=== PATIENT | male | born 1945 | race Caucasian/White ===

== ENCOUNTER → 2017-05-14 | Outpatient (CLI) | payer MEDICARE, BC ==
[~2017-05-14] MED LIST: AMBI10TA PO; ASPI-110 PO; ASPI81 PO; FISH1000 PO; LOSA50; LOSA50TA PO; LYRI150C PO; OMEG100046 PO; OXYC1TAB63 PO; PROT40TA PO; RABE1TAB PO; RANI150 PO; TRAM50 PO; TRAM50TA PO; TYLE325T PO; XARE10TA PO; ZANT300T PO; ZETI10TA5 PO; ZOLP10TA3 PO
[2017-05-14 09:28] LABS: BLOOD, URINE NEG (NEG); COMMENT (UR) CULT NOT INDICATED; CULTURE IF INDICATED CULT NOT INDICATED; GLUCOSE,URINE NEG (NEG); HYALINE CAST, URINE 3 /lpf (RARE); KETONE, URINE NEG (NEG); MUCUS URINE FEW /lpf (OCC); NITRITE,URINE NEG (NEG); PH, URINE 5.5 (5.0-8.5); URINE COLOR YELLOW (YELLW/STRAW)
[2017-05-14 09:30] LABS: AUTOMATED NEUTROPHIL # 3.2 TH/MM3 (1.8-7.7); EOSINOPHIL # 0.1 TH/MM3 (0-0.4); EOSINOPHIL % 1.2 % (0.0-4.0); HEMATOCRIT 40.3 % (39.0-51.0); HEMO FLAGS DIFF FINAL; LYMPH % 24.4 % (9.0-44.0); LYMPHOCYTE # 1.2 TH/MM3 (1.0-4.8); MEAN CELL VOLUME 95.9 FL (80.0-100.0); MEAN CORPUSCULAR HEMOGLOBIN 31.8 PG (27.0-34.0); MEAN CORPUSCULAR HGB CONC 33.2 % (32.0-36.0); MONO % 7.8 % (0.0-8.0); NEUT % 65.6 % (16.0-70.0); PLATELET COUNT 329 TH/MM3 (150-450); RED BLOOD COUNT 4.21 MIL/MM3 (4.50-5.90); RED CELL DISTRIBUTION WIDTH 15.8 % (11.6-17.2); WHITE BLOOD COUNT 4.8 TH/MM3 (4.0-11.0)
[2017-05-14 09:37] LABS: INTERNATIONAL NORMALIZED RATIO 0.9 RATIO; PROTHROMBIN TIME - PATIENT 10.2 SEC (9.8-11.6)
--- NOTE | 2017-05-14 09:45 | RADRPT ---
EXAM DATE/TIME: 05/14/2017 09:27 [facility] COMPARISON: No previous studies available for comparison. INDICATIONS : Evaluate for pneumonia, pneumothorax, and communicable disease. Pre op for hip surgery. MEDICAL HISTORY : Hypertension. Gastroesophageal reflux disease. Cardiac arrhythmia. SURGICAL HISTORY : Lumbar fusion. ENCOUNTER: Initial ACUITY: 1 day PAIN SCORE: 0/10 LOCATION: Bilateral chest FINDINGS: PA and lateral views of the chest demonstrate the lungs to be symmetrically aerated without evidence of mass, infiltrate or effusion. The cardiomediastinal contours are unremarkable. Osseous structure s are intact. CONCLUSION: No acute cardiopulmonary disease. Hermilo Ma MD on May 14, 2017 at 9:43 Board Certified Radiologist. This report was verified electronically.
[2017-05-14 10:12] LABS: BICARBONATE 29.8 MEQ/L (21.0-32.0); POTASSIUM 4.1 MEQ/L (3.5-5.1)
--- NOTE | 2017-05-14 21:06 | EKG ---
Date Performed: 05/14/2017 Time Performed: 09:14:58 PTAGE: 71 years EKG: Sinus rhythm INCOMPLETE RIGHT BUNDLE BRANCH BLOCK VOLTAGE CRITERIA FOR LVH POSSIBLE SEPTAL MYOCARDIAL INFARCTION, OF INDETERMINATE AGE ABNORMAL ECG NO PREVIOUS TRACING DOCTOR: Christelle Gerber Interpretating Date/Time 05/14/2017 21:05:02
== END ==
LOC: CPRE 08:24
PROVIDERS: ATTEND Orthopaedic Surgery Sports Medicine
DX: Z01.810 Encounter for preprocedural cardiovascular examination (principal); Z01.811 Encounter for preprocedural respiratory examination; Z01.812 Encounter for preprocedural laboratory examination; Z01.818 Encounter for other preprocedural examination; Z96.60 Presence of unspecified orthopedic joint implant; Z79.01 Long term (current) use of anticoagulants; Z13.9 Encounter for screening, unspecified; M79.609 Pain in unspecified limb
CPT/HCPCS: 36415; 71020; 80048; 81001; 85025; 85610; 85730; 86850; 86900; 86901; 93005

== ENCOUNTER 2017-05-15 05:38 | Inpatient (IN) | payer MEDICARE, BC ==
--- NOTE | 2017-05-14 22:32 | MH ---
cc: WON HEATH M.D. DATE OF ADMISSION 05/15/2017 DATE OF 1945 ADMISSION DIAGNOSIS Left hip avascular necrosis. PLANNED PROCEDURE Left total hip arthroplasty - anterior approach. 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 He has tried anti-inflammatory medication and corticosteroid injection into his left hip. His pain is progressively worsened and now he has had an MRI scan which confirms a intra-articular subchondral fracture with flattening of the femoral head consistent with avascular necrosis of the hip as well as underlying significant osteoarthritis . No other pathologic condition is seen MRI scan. This is a progressive debilitating condition with avascular necrosis with intra-articular fracture and therefore, he has indicated for left total hip arthroplasty. PAST MEDICAL HISTORY Significant for: 1. 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 2. He has gastroesophageal reflux disease. 3. Hypertension. MEDICATIONS His medications include: 1. Aspirin. 2. Hydrochlorothiazide. 3. Losartan. 4. Lyrica. 5. Previously on Prednisone. 6. Ranitidine. 7. Zetia. 8. Aciphex. ALLERGIES HE REPORTS AN ALLERGY TO STATINS. HMG - CoA reductase inhibitors. PAST SURGICAL HISTORY Significant for: 1. A prior foot / ankle surgery. 2. Prior hernia surgery. 3. Prior lower lumbar spine surgery. 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 He is . Uses occasional alcohol. Does not use tobacco. PHYSICAL EXAMINATION GENERAL: The patient is alert, oriented, appropriate. HEENT: His head is atraumatic, normocephalic. Extraocular muscles intact. His mucous membranes are pink and moist. NECK: His neck is supple without masses. LUNGS: Clear to auscultation bilaterally. HEART: Regular rate and rhythm without murmur. ABDOMEN: Soft, benign. EXTREMITIES: Left hip reveals significant pain with range of motion. No erythema. No masses. On the right hip he has internal rotation to 40 degrees and external rotation to 40 degrees. On the left hip he has internal rotation to 20 degrees and external rotation to 20 degrees. Significant pain with block extension of the hip and pain on end range of motion. His knee is nontender. His calves are soft. His distal pulses are 2+. His distal motor, sensory, neurologic examinations intact. IMAGING MRI scan and has been reviewed which shows subchondral edema and intra-articular fracture and flattening of the femoral head consistent with avascular necrosis with collapse and also shows significant osteoarthritis of the hip joint. ASSESSMENT Left hip avascular necrosis with collapse and underlying osteoarthritis. MEDICAL DECISION MAKING The patient's condition was discussed and the options of treatment were discussed. Continuation of nonoperative treatment was discussed but based on the aggressive debilitating nature of his condition the recommendation is to proceed with left total hip arthroplasty. The surgical technique has been described. Included in the discussion are the risks and benefits of surgical intervention. He accepts these risks and wishes to press on with surgery. A detailed informed consent has a been obtained. MD ZEUS Huggins/FRANCISCO /9:24 PM /10:11 PM
[~2017-05-15] VITALS: Ht 172.7 cm; Wt 70.4 kg
[~2017-05-15 05:38] MED LIST changes: -ASPI81 PO; -FISH1000 PO; -LOSA50; -OXYC1TAB63 PO; -RANI150 PO; -TRAM50 PO; -TYLE325T PO; -XARE10TA PO; -ZETI10TA5 PO; -ZOLP10TA3 PO
[2017-05-15] MEDS ORDERED: INSULIN HUMAN REGULAR 1,000 UNITS/10 ML VIAL SQ PRN (06:15)
[2017-05-15] MEDS ORDERED: VANCOMYCIN 1000 MG/NS 250 ML (for <70 kg) IV SCH ×2 (06:15)
[2017-05-15] MEDS ORDERED: METOPROLOL TARTRATE 25 MG TAB PO PRN (06:15)
[2017-05-15] MEDS ORDERED: LACTATED RINGER'S 1000 ML IV PRN (06:15)
[2017-05-15] MEDS ORDERED: SODIUM CHLORID 0.9% 500 ML IV PRN (06:15)
[2017-05-15] MEDS ORDERED: ceFAZolin 2 GM PREMIX 50 ML IV SCH (06:15)
[2017-05-15] MEDS ORDERED: CHLORHEXIDINE GLUCONATE 4% SOLN 120 ML BTL TOPICAL SCH (06:15)
[2017-05-15] MEDS ORDERED: CHLORHEXIDINE GLUCONATE 2 % 1 PACK (2 CLOTHS) TOPICAL PRN (06:15)
[2017-05-15] MEDS ORDERED: POVIDONE IODINE 5% (ANTISEPSIS KIT) 4 APPLICATIONS EACH NARE PRN (06:15)
[2017-05-15] MEDS ORDERED: ACETAMINOPHEN 1000 MG/100 ML 100 ML IV ONE (06:30)
[2017-05-15] MEDS ORDERED: ZETI10TA5 PO (06:59)
[2017-05-15] MEDS ORDERED: TYLE325T PO (06:59)
[2017-05-15] MEDS ORDERED: TOBRAMYCIN/DEXAMETHASONE OPTH OINT 3.5 GM TUBE ONE (08:17)
[2017-05-15] MEDS ORDERED: ARTIFICIAL TEARS OPTH OINT 3.5 APPLIC/3.5 GM TUBO ONE (08:20)
[2017-05-15] MEDS ORDERED: TRANEXAMIC ACID INJ 1,056 MG in SODIUM CHLORIDE 0.9% INJ 100 ML IV SCH (08:30)
[2017-05-15] MEDS: EXPAREL PERI-ARTICULAR INJECTION (TOTAL VOL. 60 ML) P-ARTICULR SCH ×4 (09:23→09:25)
[2017-05-15] MEDS ORDERED: ZOLPIDEM TARTRATE 10 MG TAB PO PRN (10:30)
--- NOTE | 2017-05-15 10:30 | PD.OP ---
Operative Report Preoperative Diagnosis: (1) Avascular necrosis of bone of left hip Postoperative Diagnosis: (1) Avascular necrosis of bone of left hip Procedure: Left Total Hip Arthroplasty - Anterior Approach Anesthesia: General Surgeon: Easton Santamaria MD Medical Affairs Specialist(s): Nadir BENZ Operation and Findings: see dictation Easton Santamaria MD May 15, 2017 10:30
[2017-05-15] MEDS ORDERED: Post-op Orders (for Pharmacy) MISC XX ONE (10:32)
[2017-05-15] MEDS ORDERED: MAGNESIUM HYDROXIDE SUSP 30 ML CUP PO PRN (10:45)
[2017-05-15] MEDS ORDERED: LACTULOSE SYRUP 20 GM/30 ML CUP PO PRN (10:45)
[2017-05-15] MEDS ORDERED: BISACODYL 10 MG SUPP RECTAL PRN (10:45)
[2017-05-15] MEDS ORDERED: MISCELLANEOUS NURSING INFORMATION XX PRN (10:45)
[2017-05-15] MEDS ORDERED: oxyCODONE/ACETAMINOPHEN 5 MG/325 MG TAB PO PRN ×2 (10:45)
[2017-05-15] MEDS ORDERED: SENNOSIDES 8.6 MG TAB PO PRN (10:45)
[2017-05-15] MEDS ORDERED: HYDROmorphone HCL PF 2 MG/ML VIAL ONE (10:46)
[2017-05-15] MEDS: LACTATED RINGER'S 1000 ML INJ 1,000 ML IV SCH ×2 (11:00→23:01)
[2017-05-15] MEDS ORDERED: DO NOT ADM ANY ANTICOAGULANT DRUGS PRN (11:30)
[2017-05-15] MEDS: KETOROLAC TROMETHAMINE 30 MG/ML (IVP) VIAL IVP SCH ×3 (11:33→23:41)
[2017-05-15] MEDS ORDERED: cloNIDine HCL 0.1 MG TAB PO PRN (11:45)
[2017-05-15] MEDS ORDERED: ENALAPRILAT 1.25 MG/ML VIAL IV PUSH PRN (11:45)
[2017-05-15 12:15] VITALS: BP 161/85; PULSE 69; RESP 18; TEMP 98.5; O2SAT 94
[2017-05-15 12:17] VITALS: BP 161/85; PULSE 69; RESP 18; TEMP 98.5; O2SAT 94
[2017-05-15] MEDS ORDERED: TRANEXAMIC ACID IV SCH (12:30)
[2017-05-15] MEDS ORDERED: SODIUM CHLORIDE 0.9% IV SCH (12:30)
--- NOTE | 2017-05-15 12:41 | RADRPT ---
EXAM DATE/TIME: 05/15/2017 09:12 [facility] COMPARISON: No previous studies available for comparison. INDICATIONS : Left anterior hip replacement. MEDICAL HISTORY : Hypertension. Gastroesophageal reflux disease. SURGICAL HISTORY : None. ENCOUNTER: Initial ACUITY: 1 day PAIN SCORE: Non-responsive. LOCATION: Left anterior hip. FINDINGS: Left hip prosthesis in place. There is good position and alignment on this postoperative study. Posts urgical changes are demonstrated. CONCLUSION: Good position and alignment on this postoperative study. Garrett Cheek MD on May 15, 2017 at 12:39 Board Certified Radiologist. This report was verified electronically.
[2017-05-15 13:58] VITALS: O2SAT 97
[2017-05-15 15:25] VITALS: BP 144/49; PULSE 101; RESP 18; TEMP 96.1; O2SAT 92
--- NOTE | 2017-05-15 16:58 | PD.CONS ---
[facility] By Dr. 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 He underwent arthroplasty today by Dr. Silverio who requested medical management. Anesthesia records reviewed he was hemodynamically stable initially with elevated blood pressure. Denies headache, dizziness, chest pain and shortness of breath. He has history of hypertension and takes losartan. Received 1000 ml of Crystalloid and EBL of 100 ML. He also has right optical neuritis with worsening visual acuity after stopping oral steroids 2 weeks ago and received intraocular steroid shot yesterday. During the process he sustained corneal abrasion and currently using tobradex. 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 At this time, he has no complaints. He wants to avoid narcotics as possible. He was to continue IV Toradol and Tylenol. All other systems reviewed negative Review of Systems Except as stated in HPI: all other systems reviewed are Neg Past Family Social History Allergies: Coded Allergies: amlodipine (Unverified Allergy, Mild, 05/14/17) atorvastatin (Unverified Allergy, Mild, 05/14/17) pravastatin (Unverified Allergy, Mild, 05/14/17) simvastatin (Unverified Allergy, Mild, 05/14/17) Uncoded Allergies: PRAULENT (Allergy, Severe, 05/15/17) Past Medical History As previously mentioned Past Surgical History Left inguinal hernia repair 2, left knee arthroscopy, left rotator surgery, left ankle surgery and L4-L5 fusion Reported Medications Zetia (Ezetimibe) 10 Mg Tab 10 Mg PO DAILY Ambien (Zolpidem Tartrate) 10 Mg Tab 10 Mg PO HS PRN Fish Oil 1,000 mg Softgel (Adams-3/Dha/Epa/Fish Oil) 1,000 Mg (120 Mg-180 Mg) Capsule 1 Cap PO DAILY Zantac (Ranitidine HCl) 300 Mg Tab 300 Mg PO BID Lyrica (Pregabalin) 150 Mg Cap 150 Mg PO BID Rabeprazole (Rabeprazole Sodium) 20 Mg Tab 20 Mg PO DAILY Losartan (Losartan Potassium) 50 Mg Tab 50 Mg PO DAILY Aspirin 81 (Aspirin) 81 Mg Tabdr 81 Mg PO DAILY Family History COPD Social History Occasional wine use. Does not smoke Physical Exam Vital Signs Vital Signs Date Time Temp Pulse Resp B/P (MAP) Pulse Ox O2 Delivery O2 Flow Rate FiO2 05/15/17 15:25 96.1 101 18 144/49 (80) 92 05/15/17 13:58 97 Nasal Cannula 1.00 05/15/17 12:17 98.5 69 18 161/85 (110) 94 05/15/17 12:15 98.5 69 18 161/85 (110) 94 05/15/17 11:45 97.8 69 18 139/77 (97) 95 Nasal Cannula 2 05/15/17 11:30 67 17 142/77 (98) 95 Nasal Cannula 2 05/15/17 11:15 63 15 143/75 (97) 95 Nasal Cannula 2 05/15/17 11:00 70 15 130/69 (89) 95 Nasal Cannula 2 05/15/17 10:45 85 15 143/77 (99) 95 Room Air 05/15/17 10:32 97.8 94 15 144/78 (100) 97 Simple Mask 6 05/15/17 07:07 97.6 62 20 181/97 (125) 100 Physical Exam GENERAL: This is a well-nourished, well-developed patient, in no apparent distress. SKIN: No rashes, ecchymoses or lesions. Cool and dry. HEAD: Atraumatic. Normocephalic. No temporal or scalp tenderness. EYES: Pupils equal round and reactive. Extraocular motions intact. No scleral icterus. No injection or drainage. ENT: Nose without bleeding, purulent drainage or septal hematoma. Throat without erythema, tonsillar hypertrophy or exudate. Uvula midline. Airway patent. NECK: Trachea midline. No JVD or lymphadenopathy. Supple, nontender, no meningeal signs. CARDIOVASCULAR: Regular rate and rhythm without murmurs, gallops, or rubs. RESPIRATORY: Clear to auscultation. Breath sounds equal bilaterally. No wheezes , rales, or rhonchi. GASTROINTESTINAL: Abdomen soft, non-tender, nondistended. No guarding. MUSCULOSKELETAL: Extremities without clubbing, cyanosis, or edema. NEUROLOGICAL: Awake and alert. Cranial nerves II through XII intact. Motor and sensory grossly within normal limits. Five out of 5 muscle strength in all muscle groups. Normal speech. Laboratory Preop records reviewed for, 4.8 hemoglobin 13.4 platelet count of 24 INR 0.9 BUN of 2012 creatinine 1.08 urinalysis unremarkable chest x-ray unremarkable EKG sinus rhythm with incomplete RBBB Imaging Last Impressions Hip X-Ray 05/15/17 0000 Signed Impressions: Service Date/Time: April 09:12 - CONCLUSION: Good position and alignment on this postoperative study. 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 He underwent arthroplasty by Dr. Silverio who requested medical management. Left hip a vascular necrosis and osteomyelitis status post arthroplasty. Stable continue postoperative care physical therapy, wound care, pain management with Tylenol, IV Toradol and as needed Percocet. DVT prophylaxis with Xarelto. Monitor for postoperative anemia check H&H in the morning Hypertension. Initially control secondary to anxiety. Continue losartan with as needed Vasotec and clonidine. Right optical neuritis with worsening visual acuity after stopping oral steroids 2 weeks ago status post intraocular steroid shot. During the process he sustained corneal abrasion and currently using tobradex. We'll monitor Autoimmune neuropathy from statin with intermittent numbness of the bilateral lower extremities on Lyrica. Stable Hyperlipidemia on Zetia. Stable GERD on AcipHex, ranitidine and as needed Gaviscon. Discussed Condition With Patient and Armin Yrok MD May 15, 2017 16:58
[2017-05-15] MEDS ORDERED: AL HYDR/MG TRIS/ALGIN AC/SOD BIC REG STRENGTH CHEW TAB CHEW PRN (17:00)
[2017-05-15] MEDS: FAMOTIDINE 20 MG TAB PO SCH (20:49)
[2017-05-15] MEDS: DOCUSATE SODIUM 50 MG/SENNA 8.6 MG TAB PO SCH (20:49)
[2017-05-15 20:50] VITALS: BP 127/81; PULSE 92; RESP 17; TEMP 96.3; O2SAT 96
[2017-05-15] MEDS: ACETAMINOPHEN 500 MG CPLT PO SCH (20:50)
[2017-05-15] MEDS: PREGABALIN 75 MG CAP PO SCH (20:50)
--- NOTE | 2017-05-15 20:51 | MP ---
cc: WON HEATH M.D. DATE OF SURGERY: 05/15/2017. PREOPERATIVE DIAGNOSIS: Left hip avascular necrosis and osteoarthritis. POSTOPERATIVE DIAGNOSIS: Left hip avascular necrosis and severe left hip osteoarthritis. OPERATIVE PROCEDURE PERFORMED: Left total hip arthroplasty -- anterior approach using Tyrese & Tyrese DePuy prosthesis, size 12 femoral stem standard offset with a +5 mm, 36 diameter ceramic femoral head and a 52 mm acetabular shell with a neutral ALTRX polyethylene liner. SURGEON: Won Heath M.D. BUS ANALYST SURGEON: TUYET Hargrove. ANESTHESIA: General. ESTIMATED BLOOD LOSS: 200 cc. DRAINS: None. SPECIMEN: Femoral head inspected and found to have exposed bone consistent with severe osteoarthritis as well as two flattened areas consistent with avascular necrosis with subchondral fracture and collapse. COMPLICATIONS: None known. 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 He has gone from a high level of activity to having no significant activity level and chronically in pain. MRI scan reveals a subchondral fracture with collapse consistent with avascular necrosis with collapse. He is now indicated for total hip arthroplasty. A detailed discussion and the options of treatment were thoroughly discussed. A detailed informed consent was obtained. NOTE: It should be noted that the presser first, Nadir Franco is an advanced registered nurse practitioner and his skill set was medically necessary to assist with the performance of the operation. DESCRIPTION OF THE PROCEDURE IN DETAIL: The patient was brought the operating room and placed on the well-padded ProFx table. The left hip was prepped and draped in the usual sterile fashion. IV antibiotics were given. Time-out was completed. Anterior approach to the hip. Meticulous hemostasis was obtained with the use of electrocautery and the Aquamantys Cauterizing Device. We proceeded with direct anterior approach and identified the crossing artery and coagulated this with the Aquamantys and then split it with the cautery and then exposed the anterior capsule placing our retractors on either side and then made a T capsulotomy in the capsule and tagged it with #2 FiberWire and then used fluoroscopy to help guide us to where our cut was to be and then proceeded with our femoral neck cut and then inspected the femoral head with severe arthritis and the collapse of the femoral head, subchondral fracture regions noted and then proceeded to sequentially ream the hip. We did resect the labrum. We medialized and we reamed up to 51 and then proceeded to impact a 52 mm cup with excellent fixation. A hole eliminator was placed. Polyethylene was placed for a 36 mm head and then proceeded with placing our deep retractors about the proximal femur and externally rotating and crossing and then using the box chisel with canal finger and sequential broaching up to size 12 where we used a calcar reamer and did a trial reduction and found excellent stability. Radiographically a few millimeters short on leg length, otherwise size 12 was fitting nicely. Then we proceeded with placement of our final size 12 and then sized the +5 and this was the right length and offset with excellent stability. This was the final head. The ceramic head was impacted into place. We then proceeded with anatomic repair of the capsule and then proceeded with closure with absorbable suture. Long-acting Marcaine was injected. The patient was closed in layers with absorbable sutures with subcuticular on the skin. Steri-Strips applied. Sterile dressing applied. The patient was awoken and returned to the recovery room in stable condition. MD ZEUS Huggins/DAVI /10:09 AM /8:29 PM
[2017-05-15] MEDS ORDERED: FAMOTIDINE 20 MG TAB PO SCH (21:00)
[2017-05-16] VITALS: BP 138/75; PULSE 74; RESP 17; TEMP 96.5; O2SAT 93
[2017-05-16 03:15] VITALS: BP 129/77; PULSE 75; RESP 16; TEMP 96.7; O2SAT 97
[2017-05-16] MEDS: KETOROLAC TROMETHAMINE 30 MG/ML (IVP) VIAL IVP SCH ×2 (05:03→10:40)
--- NOTE | 2017-05-16 07:01 | PD.ORT.PN ---
Subjective Subjective Remarks Patient comfortable Objective Vitals Vital Signs Date Time Temp Pulse Resp B/P (MAP) Pulse Ox O2 Delivery O2 Flow Rate FiO2 05/16/17 03:15 96.7 75 16 129/77 (94) 97 05/16/17 00:00 96.5 74 17 138/75 (96) 93 05/15/17 21:25 21 05/15/17 20:50 96.3 92 17 127/81 (96) 96 05/15/17 15:25 96.1 101 18 144/49 (80) 92 05/15/17 13:58 97 Nasal Cannula 1.00 05/15/17 12:17 98.5 69 18 161/85 (110) 94 05/15/17 12:15 98.5 69 18 161/85 (110) 94 05/15/17 11:45 97.8 69 18 139/77 (97) 95 Nasal Cannula 2 05/15/17 11:30 67 17 142/77 (98) 95 Nasal Cannula 2 05/15/17 11:15 63 15 143/75 (97) 95 Nasal Cannula 2 05/15/17 11:00 70 15 130/69 (89) 95 Nasal Cannula 2 05/15/17 10:45 85 15 143/77 (99) 95 Room Air 05/15/17 10:32 97.8 94 15 144/78 (100) 97 Simple Mask 6 05/15/17 07:07 97.6 62 20 181/97 (125) 100 I/O 05/15/17 05/15/17 05/15/17 05/16/17 05/16/17 05/16/17 07:00 15:00 23:00 07:00 15:00 23:00 Intake Total 1000 ml 480 ml Output Total 100 ml Balance 900 ml 480 ml Intake Oral 480 ml Other 1000 ml Output Estimated Blood Loss 100 ml # Voids 1 3 # Bowel Movements 0 Objective Remarks Left hip dressing clean and intact calves soft notender NVI Assessment & Plan Ortho Post Op Day #: 1 (Left total hip) Problem List: Assessment and Plan Doing well post op day #1 Ok to D/C home meds percocet and xareleto weight bearing as tolerated F/U as scheduled Medical Sx addressing urinary frequency Medical sx imput appreciated Easton Santamaria MD May 16, 2017 07:01
[2017-05-16] MEDS ORDERED: OXYC1TAB63 PO (07:07)
[2017-05-16] MEDS ORDERED: XARE10TA PO (07:07)
[2017-05-16 07:14] LABS: HEMATOCRIT 34.5 % (39.0-51.0); REVIEW FLAG FINAL
[2017-05-16 07:45] VITALS: BP 140/85; PULSE 74; RESP 18; TEMP 95.7; O2SAT 94
[2017-05-16] MEDS: DOCUSATE SODIUM 50 MG/SENNA 8.6 MG TAB PO SCH (08:22)
[2017-05-16] MEDS: ACETAMINOPHEN 500 MG CPLT PO SCH (08:22)
[2017-05-16] MEDS: FAMOTIDINE 20 MG TAB PO SCH (08:22)
[2017-05-16] MEDS: PREGABALIN 75 MG CAP PO SCH (08:22)
[2017-05-16 08:50] LABS: BLOOD, URINE NEG (NEG); COMMENT (UR) CULT NOT INDICATED; CULTURE IF INDICATED CULT NOT INDICATED; GLUCOSE,URINE NEG (NEG); HYALINE CAST, URINE 3 /lpf (RARE); KETONE, URINE NEG (NEG); MUCUS URINE FEW /lpf (OCC); NITRITE,URINE NEG (NEG); TRANSITIONAL EPI CELLS, URINE <1 /hpf; URINE COLOR LIGHT-YELLOW (YELLW/STRAW)
[2017-05-16] MEDS ORDERED: EZETIMIBE 10 MG TAB PO SCH (09:00)
[2017-05-16] MEDS ORDERED: PANTOPRAZOLE SOD 40 MG DELAYED RELEASE TAB PO SCH (09:00)
[2017-05-16] MEDS ORDERED: LOSARTAN 50 MG TAB PO SCH (09:00)
[2017-05-16] MEDS ORDERED: RIVAROXABAN 10 MG TAB PO SCH (10:00)
== END 2017-05-16 11:27 | disposition home or self-care (01) | DRG 470 ==
LOC: HSDI 05:38 → N06B 12:02
PROVIDERS: ADMIT Orthopaedic Surgery Sports Medicine; ATTEND Orthopaedic Surgery Sports Medicine
PROC: 0SRB04A Replacement of Left Hip Joint with Ceramic on Polyethylene Synthetic Substitute, Uncemented, Open Approach (ICD-10-PCS; principal; 2017-05-15 08:01)
DX: M16.12 Unilateral primary osteoarthritis, left hip (principal); M87.9 Osteonecrosis, unspecified; G62.0 Drug-induced polyneuropathy; H46.9 Unspecified optic neuritis; I10 Essential (primary) hypertension; K21.9 Gastro-esophageal reflux disease without esophagitis; E78.5 Hyperlipidemia, unspecified; T46.6X5S Adverse effect of antihyperlipidemic and antiarteriosclerotic drugs, sequela; Z88.8 Allergy status to other drugs, medicaments and biological substances
CPT/HCPCS: 73502; 76000; 81001; 85014; 85018; 94150; C9290; J0131; J0690; J1170; J1885; J3370; J7050; J7120